=== PATIENT | female | born 1955 | race Caucasian/White ===

== ENCOUNTER → 2019-12-28 13:58 | Outpatient (CLI) | payer BC, SELFPAY ==
[2019-12-28 15:21] LABS: Absolute Lymphocyte Count 3.17 X10^3/uL (0.83-4.51); Absolute Neutrophil Count 2.8 X10^3/uL (2.0-7.7); Basophil# 0.03 X10^3/uL; Basophil% 0.4 % (0-1); Eosinophil# 0.12 X10^3/uL; Eosinophils% 1.8 % (0-5); Hematocrit 38.1 % (37-47); Hemoglobin 12.8 g/dL (12.0-15.0); Lymphocyte # 3.17 X10^3/ul (4.0); Lymphocyte % 47.2 % (19-41); Mean Corp Hgb Conc 33.6 g/dL (32-36); Mean Corpuscular Hgb 29.6 pg (27.0-32.0); Mean Corpuscular Volume 88.2 fL (81-99); Mean Platelet Vol. 10.2 fl (6.2-12.0); Monocyte# 0.53 X10^3/uL; Monocyte% 7.9 % (0-10); NRBC Flagged by Analyzer 0 % (0-5); Neutrophil # 2.84 X10^3/uL (2.7-7.7); Neutrophil % 42.3 % (47-70); Platelet Count 302 K/mm3 (150-450); RBC Distribution Width CV 12.1 % (11.6-14.6); RBC Distribution Width SD 39.1 fl (35.1-43.9); Red Blood Count 4.32 M/mm3 (4.2-5.4); White Blood Count 6.7 K/mm3 (4.4-11.0)
[2019-12-28 16:26] LABS: ALB/GLOB Ratio 0.8 RATIO (0.9-2.4); AST(SGOT) 18 U/L (15-37); Alanine Aminotransfer ALT/SGPT 28 U/L (13-56); Albumin, Serum 3.7 g/dL (3.2-5.0); Alkaline Phosphatase 93 U/L (45-117); Anion Gap 5 (5-15); BUN 13 mg/dL (7-18); Calcium,Total 9.6 mg/dL (8.5-10.1); Chloride 104 mmol/L (98-107); Creatinine, Serum 0.81 mg/dL (0.55-1.02); EST Glomerular Filtration Rate 76 mL/min (>60); Est Glom Filt Rate - Afr Amer 92 mL/min (>60); Globulin 4.7 g/dL (2.2-4.2); Glucose 74 mg/dL (74-106); Potassium 3.3 mmol/L (3.5-5.1); Protein, Total 8.4 g/dL (6.4-8.2); Sodium Level 140 mmol/L (136-145)
[2019-12-29 10:08] LABS: Hepatitis B Surface Antibody Non-Reactive; Hepatitis B Surface Antigen Non-Reactive (Nonreactive); Hepatitis C Antibody Non-Reactive (Nonreactive)
[2019-12-31 15:12] LABS: CCP IgG Antibodies 16 units (0-19); Hepatitis B Core AB IgM Negative (Negative)
== END ==
PROVIDERS: PCP Family Medicine; Referring Provider Internal Medicine Rheumatology; Visit Provider Internal Medicine Rheumatology
DX: I10 Essential (primary) hypertension (principal); K21.9 Gastro-esophageal reflux disease without esophagitis; E78.5 Hyperlipidemia, unspecified; M79.7 Fibromyalgia; M05.79 Rheumatoid arthritis with rheumatoid factor of multiple sites without organ or systems involvement
CPT/HCPCS: 36415; 80053; 85025; 86200; 86431; 86705; 86706; 86803; 87340

== ENCOUNTER → 2020-05-31 15:07 | Outpatient (CLI) | payer BC, SELFPAY ==
[2020-05-31 17:36] LABS: Absolute Lymphocyte Count 2.73 X10^3/uL (0.83-4.51); Absolute Neutrophil Count 3.5 X10^3/uL (2.0-7.7); Basophil# 0.02 X10^3/uL; Basophil% 0.3 % (0-1); Eosinophil# 0.11 X10^3/uL; Eosinophils% 1.6 % (0-5); Hematocrit 37.2 % (37-47); Hemoglobin 12.4 g/dL (12.0-15.0); Lymphocyte # 2.73 X10^3/ul (4.0); Lymphocyte % 39.2 % (19-41); Mean Corp Hgb Conc 33.3 g/dL (32-36); Mean Corpuscular Hgb 30.2 pg (27.0-32.0); Mean Corpuscular Volume 90.5 fL (81-99); Mean Platelet Vol. 10.8 fl (6.2-12.0); Monocyte# 0.56 X10^3/uL; NRBC Flagged by Analyzer 0 % (0-5); Neutrophil # 3.52 X10^3/uL (2.7-7.7); Neutrophil % 50.6 % (47-70); Platelet Count 258 K/mm3 (150-450); RBC Distribution Width CV 12.8 % (11.6-14.6); RBC Distribution Width SD 41.5 fl (35.1-43.9); Red Blood Count 4.11 M/mm3 (4.2-5.4)
[2020-05-31 18:00] LABS: ALB/GLOB Ratio 0.8 RATIO (0.9-2.4); AST(SGOT) 27 U/L (15-37); Alanine Aminotransfer ALT/SGPT 34 U/L (13-56); Albumin, Serum 3.7 g/dL (3.2-5.0); Alkaline Phosphatase 91 U/L (45-117); Anion Gap 7 (5-15); BUN 14 mg/dL (7-18); BUN/Creat Ratio 16.5 RATIO (10-20); Calcium,Total 9.1 mg/dL (8.5-10.1); Chloride 106 mmol/L (98-107); Creatinine, Serum 0.85 mg/dL (0.55-1.02); EST Glomerular Filtration Rate 72 mL/min (>60); Est Glom Filt Rate - Afr Amer 87 mL/min (>60); Globulin 4.4 g/dL (2.2-4.2); Glucose 94 mg/dL (74-106); Protein, Total 8.1 g/dL (6.4-8.2); Sodium Level 140 mmol/L (136-145)
== END ==
PROVIDERS: PCP Family Medicine; Referring Provider Internal Medicine Rheumatology; Visit Provider Internal Medicine Rheumatology
DX: M05.79 Rheumatoid arthritis with rheumatoid factor of multiple sites without organ or systems involvement (principal); M79.7 Fibromyalgia; K21.9 Gastro-esophageal reflux disease without esophagitis; I10 Essential (primary) hypertension; E78.5 Hyperlipidemia, unspecified; Z79.899 Other long term (current) drug therapy
CPT/HCPCS: 36415; 80053; 85025

== ENCOUNTER → 2020-06-16 11:37 | Outpatient (CLI) | payer BC, SELFPAY ==
[2020-06-16 15:26] LABS: Absolute Lymphocyte Count 2.63 X10^3/uL (0.83-4.51); Absolute Neutrophil Count 2.1 X10^3/uL (2.0-7.7); Basophil# 0.02 X10^3/uL; Basophil% 0.4 % (0-1); Eosinophil# 0.17 X10^3/uL; Eosinophils% 3.1 % (0-5); Hematocrit 37.5 % (37-47); Hemoglobin 12.2 g/dL (12.0-15.0); Lymphocyte # 2.63 X10^3/ul (4.0); Lymphocyte % 48.3 % (19-41); Mean Corp Hgb Conc 32.5 g/dL (32-36); Mean Corpuscular Hgb 30.2 pg (27.0-32.0); Mean Corpuscular Volume 92.8 fL (81-99); Mean Platelet Vol. 10.6 fl (6.2-12.0); Monocyte# 0.47 X10^3/uL; Monocyte% 8.6 % (0-10); NRBC Flagged by Analyzer 0 % (0-5); Neutrophil # 2.14 X10^3/uL (2.7-7.7); Neutrophil % 39.2 % (47-70); Platelet Count 262 K/mm3 (150-450); RBC Distribution Width CV 12.8 % (11.6-14.6); Red Blood Count 4.04 M/mm3 (4.2-5.4); White Blood Count 5.5 K/mm3 (4.4-11.0)
[2020-06-16 15:41] LABS: ALB/GLOB Ratio 0.9 RATIO (0.9-2.4); AST(SGOT) 22 U/L (15-37); Alanine Aminotransfer ALT/SGPT 34 U/L (13-56); Albumin, Serum 3.6 g/dL (3.2-5.0); Alkaline Phosphatase 91 U/L (45-117); Anion Gap 6 (5-15); BUN 17 mg/dL (7-18); BUN/Creat Ratio 19.4 RATIO (10-20); Calcium,Total 8.9 mg/dL (8.5-10.1); Chloride 106 mmol/L (98-107); Creatinine, Serum 0.88 mg/dL (0.55-1.02); EST Glomerular Filtration Rate 69 mL/min (>60); Est Glom Filt Rate - Afr Amer 84 mL/min (>60); Globulin 4.1 g/dL (2.2-4.2); Glucose 78 mg/dL (74-106); Potassium 3.1 mmol/L (3.5-5.1); Protein, Total 7.7 g/dL (6.4-8.2); Sodium Level 140 mmol/L (136-145)
== END ==
PROVIDERS: PCP Family Medicine; Referring Provider Internal Medicine Rheumatology; Visit Provider Internal Medicine Rheumatology
DX: M05.79 Rheumatoid arthritis with rheumatoid factor of multiple sites without organ or systems involvement (principal); M79.7 Fibromyalgia; K21.9 Gastro-esophageal reflux disease without esophagitis; I10 Essential (primary) hypertension; E78.5 Hyperlipidemia, unspecified; Z79.899 Other long term (current) drug therapy
CPT/HCPCS: 36415; 80053; 85025

== ENCOUNTER → 2020-08-14 12:04 | Outpatient (CLI) | payer BC, SELFPAY ==
[2020-08-14 16:46] LABS: ALB/GLOB Ratio 0.9 RATIO (0.9-2.4); AST(SGOT) 43 U/L (15-37); Alanine Aminotransfer ALT/SGPT 47 U/L (13-56); Albumin, Serum 3.8 g/dL (3.2-5.0); Alkaline Phosphatase 90 U/L (45-117); Anion Gap 5 (5-15); BUN 15 mg/dL (7-18); BUN/Creat Ratio 19.2 RATIO (10-20); Calcium,Total 9.7 mg/dL (8.5-10.1); Chloride 105 mmol/L (98-107); Creatinine, Serum 0.78 mg/dL (0.55-1.02); EST Glomerular Filtration Rate 79 mL/min (>60); Est Glom Filt Rate - Afr Amer 96 mL/min (>60); Globulin 4.4 g/dL (2.2-4.2); Glucose 86 mg/dL (74-106); Potassium 3.2 mmol/L (3.5-5.1); Protein, Total 8.2 g/dL (6.4-8.2); Sodium Level 140 mmol/L (136-145)
[2020-08-14 17:07] LABS: Absolute Lymphocyte Count 2.32 X10^3/uL (0.83-4.51); Absolute Neutrophil Count 2.5 X10^3/uL (2.0-7.7); Basophil# 0.02 X10^3/uL; Basophil% 0.4 % (0-1); Eosinophils% 1.9 % (0-5); Hematocrit 37.5 % (37-47); Hemoglobin 12.4 g/dL (12.0-15.0); Lymphocyte # 2.32 X10^3/ul (4.0); Lymphocyte % 43.7 % (19-41); Mean Corp Hgb Conc 33.1 g/dL (32-36); Mean Corpuscular Hgb 30.8 pg (27.0-32.0); Mean Corpuscular Volume 93.3 fL (81-99); Mean Platelet Vol. 10.9 fl (6.2-12.0); Monocyte# 0.34 X10^3/uL; Monocyte% 6.4 % (0-10); NRBC Flagged by Analyzer 0 % (0-5); Neutrophil # 2.52 X10^3/uL (2.7-7.7); Neutrophil % 47.4 % (47-70); Platelet Count 273 K/mm3 (150-450); RBC Distribution Width CV 13.8 % (11.6-14.6); RBC Distribution Width SD 46.4 fl (35.1-43.9); Red Blood Count 4.02 M/mm3 (4.2-5.4); White Blood Count 5.3 K/mm3 (4.4-11.0)
== END ==
PROVIDERS: PCP Family Medicine; Referring Provider Internal Medicine Rheumatology; Visit Provider Internal Medicine Rheumatology
DX: M05.79 Rheumatoid arthritis with rheumatoid factor of multiple sites without organ or systems involvement (principal); M79.7 Fibromyalgia; K21.9 Gastro-esophageal reflux disease without esophagitis; I10 Essential (primary) hypertension; E78.5 Hyperlipidemia, unspecified; Z79.899 Other long term (current) drug therapy
CPT/HCPCS: 36415; 80053; 85025

== ENCOUNTER → 2020-09-11 10:10 | Outpatient (CLI) ==
[2020-09-11 12:59] LABS: ALB/GLOB Ratio 0.8 RATIO (0.9-2.4); AST(SGOT) 32 U/L (15-37); Alanine Aminotransfer ALT/SGPT 34 U/L (13-56); Albumin, Serum 3.5 g/dL (3.2-5.0); Alkaline Phosphatase 98 U/L (45-117); Anion Gap 7 (5-15); BUN 18 mg/dL (7-18); BUN/Creat Ratio 21.8 RATIO (10-20); Calcium,Total 9.2 mg/dL (8.5-10.1); Chloride 104 mmol/L (98-107); Creatinine, Serum 0.83 mg/dL (0.55-1.02); EST Glomerular Filtration Rate 74 mL/min (>60); Est Glom Filt Rate - Afr Amer 90 mL/min (>60); Globulin 4.4 g/dL (2.2-4.2); Glucose 106 mg/dL (74-106); Potassium 3.1 mmol/L (3.5-5.1); Protein, Total 7.9 g/dL (6.4-8.2); Sodium Level 140 mmol/L (136-145)
== END ==
PROVIDERS: PCP Family Medicine; Referring Provider Internal Medicine Rheumatology; Visit Provider Internal Medicine Rheumatology
DX: M05.79 Rheumatoid arthritis with rheumatoid factor of multiple sites without organ or systems involvement (principal); M79.7 Fibromyalgia; K21.9 Gastro-esophageal reflux disease without esophagitis; I10 Essential (primary) hypertension; E78.5 Hyperlipidemia, unspecified; Z79.899 Other long term (current) drug therapy
CPT/HCPCS: 36415; 80053

== ENCOUNTER → 2021-07-16 14:57 | Outpatient (CLI) | payer BC, SELFPAY ==
--- NOTE | 2021-07-16 15:02 | US_ITS ---
STUDY: RENAL ULTRASOUND - COMPLETE REASON FOR EXAM: Female, 65 years old. HEMATURIA TECHNIQUE: Ultrasound evaluation of the kidneys was performed with real-time and static peres-scale imaging. COMPARISON: None. FINDINGS: RIGHT KIDNEY: Normal location of the right kidney, which is normal in size. The right kidney measures 10.8 cm x 5.5 cm x 4.2 cm. There is a normal cortex of the right kidney. The renal cortex measures 1.1 cm. There is no right renal mass or cyst. There are no right renal calculi. There is no right hydronephrosis. DISTAL RIGHT URETER: There is non-visualization of the distal right ureter. There is no demonstrated right ureterovesical junction calculus. There is a visualized right ureteral jet. LEFT KIDNEY: Normal location of the left kidney, which is normal in size. The left kidney measures 11.3 cm x 4.6 cm x 4.4 cm. There is a normal cortex of the left kidney. The renal cortex measures 2.0 cm. There is no left renal mass or cyst. There are no left renal calculi. There is no left hydronephrosis. DISTAL LEFT URETER: There is non-visualization of the distal left ureter. There is no demonstrated left ureterovesical junction calculus. There is a visualized left ureteral jet. BLADDER: The distended urinary bladder has a volume of 130 ml. There is a normal wall thickness of the distended urinary bladder. There is no demonstrated mass within the urinary bladder. There are no demonstrated bladder calculi. US/Kidney and Bladder IMPRESSION: Normal ultrasound of the kidneys and urinary bladder. Electronically Signed: Zeferino Hawthorne MD at 10:06 EDT , Service support ,
== END ==
PROVIDERS: PCP Physician Assistant; Referring Provider Physician Assistant; Visit Provider Physician Assistant
DX: R31.9 Hematuria, unspecified (principal)
CPT/HCPCS: 76770

== ENCOUNTER → 2021-08-15 10:22 | Outpatient (CLI) | payer BC, SELFPAY ==
--- NOTE | 2021-08-15 09:30 | EMB_PTH ---
PATIENT: TONIA SIDHU LOC: [facility] U#:[id number] AGE/SX: 69/F ROOM: RE08/15/[address]: VI Purcell : 1955 BED: DIS: SPEC #: [id number] RECD: 08/15/21 10:15 STATUS: ANTHONY POLINA #: [id number] ANJU: 08/15/21 09:[address]: Richelle Morton NP DEPT: SURGICAL PATHOLOGY RECD BY: Ne Aguilar ENTERED: 08/15/21 11:15 SP TYPE: ENDOM BX/C ASHLEY DR: ANA Hernandez Tissues: Endometrium, NOS Procedures: Surgery Specimen Level IV HEADER OPERATION: Endometrial biopsy PRE-OP DIAGNOSIS: PMB TISSUE SUBMITTED: Endometrial lining MICROSCOPIC DIAGNOSIS Endometrial biopsy: Simple endometrial hyperplasia without atypia. ROXANNA:octavio 08/16/2021 COMMENT Case has been reviewed in consultation with Dr. Pham who concurs with the above diagnosis. IDC:AM MICROSCOPIC DESCRIPTION Slides are reviewed. GROSS DESCRIPTION Received is one container labeled with the patient's name and not further designated. The specimen consists of multiple irregular fragments of pink soft tissue mixed with mucoid tissue that in aggregate measure 3 x 2.5 x 0.3 cm. The specimen is totally submitted in one cassette. / SJ:octavio 08/15/21 TC:5 CPT: 05544
== END ==
PROVIDERS: PCP Physician Assistant; Referring Provider Nurse Practitioner Women's Health; Visit Provider Nurse Practitioner Women's Health
DX: Z12.4 Encounter for screening for malignant neoplasm of cervix (principal)
CPT/HCPCS: 87624; 88175; 88305; G0145

== ENCOUNTER → 2021-08-22 14:10 | Outpatient (CLI) | payer BC, SELFPAY ==
--- NOTE | 2021-08-22 14:11 | US_ITS ---
STUDY: ULTRASOUND OF THE FEMALE PELVIS - COMPLETE REASON FOR EXAM: Female, 65 years old. PMB TECHNIQUE: Endovaginal. Transvaginal US was obtained to better visualized the ovaries. COMPARISON: None. FINDINGS: The uterus is anteverted and is in a midline position. The uterus measures 9.3 x 5 x 3.7 cm. The endometrium measures 8.2 mm in thickness, and is fluid distended. There is no demonstrated endometrial mass. There is no demonstrated myometrial mass. I.U.D. - The patient does not have an I.U.D. cystic area in the lower uterine segment may be in the cervix. This may be a nabothian cyst. There is appearance of a solid appearing mass in the cervix measuring 7.2 mm. This may be a polyp. There is nonvisualization of the right ovary due to overlying bowel gas. There is nonvisualization of the left ovary due to overlying bowel gas. There is no fluid in the cul-de-sac. Urinary bladder volume is 369 cc. US/Transvaginal Non- IMPRESSION: There is endometrial thickening. This is abnormal for the patient''s age if she is postmenopausal. There is appearance of a solid appearing mass in the cervix measuring 7.2 mm. This may be a polyp. Direct visualization is recommended to exclude an underlying mass. The urinary bladder is distended. This can suggest urinary retention. Electronically Signed: Brayan Perez MD at 15:51 EDT , Service support ,
--- NOTE | 2021-08-22 14:11 | US_ITS ---
STUDY: ULTRASOUND OF THE FEMALE PELVIS - COMPLETE REASON FOR EXAM: Female, 65 years old. PMB TECHNIQUE: Endovaginal. Transvaginal US was obtained to better visualized the ovaries. COMPARISON: None. FINDINGS: The uterus is anteverted and is in a midline position. The uterus measures 9.3 x 5 x 3.7 cm. The endometrium measures 8.2 mm in thickness, and is fluid distended. There is no demonstrated endometrial mass. There is no demonstrated myometrial mass. I.U.D. - The patient does not have an I.U.D. cystic area in the lower uterine segment may be in the cervix. This may be a nabothian cyst. There is appearance of a solid appearing mass in the cervix measuring 7.2 mm. This may be a polyp. There is nonvisualization of the right ovary due to overlying bowel gas. There is nonvisualization of the left ovary due to overlying bowel gas. There is no fluid in the cul-de-sac. Urinary bladder volume is 369 cc. US/Pelvic (Non ) IMPRESSION: There is endometrial thickening. This is abnormal for the patient''s age if she is postmenopausal. There is appearance of a solid appearing mass in the cervix measuring 7.2 mm. This may be a polyp. Direct visualization is recommended to exclude an underlying mass. The urinary bladder is distended. This can suggest urinary retention. Electronically Signed: Brayan Perez MD at 15:51 EDT , Service support ,
== END ==
PROVIDERS: PCP Physician Assistant; Visit Provider Nurse Practitioner Women's Health
DX: N95.0 Postmenopausal bleeding (principal)
CPT/HCPCS: 76830; 76856

== ENCOUNTER 2021-11-20 07:54 | Day surgery (SDC) | payer MEDICARE, SELFPAY ==
--- NOTE | 2021-11-19 13:24 | EKG12_ITS ---
Test Reason : PREOP Blood Pressure : / mmHG Vent. Rate : 056 BPM Atrial Rate : 056 BPM P-R Int : 214 ms QRS Dur : 076 ms QT Int : 460 ms P-R-T Axes : 042 022 032 degrees QTc Int : 443 ms Sinus bradycardia with 1st degree A-V block Otherwise normal ECG Confirmed by TOMY RAMIREZ, JAMES ([id number]), website/blog editor [facility] ([id number]) on 11/20/2021 10:07:14 AM Referred By: Livia Robison Confirmed By:JAMES HUITRON MD
[2021-11-19 14:52] LABS: Absolute Lymphocyte Count 2.92 X10^3/uL (0.83-4.51); Absolute Neutrophil Count 1.9 X10^3/uL (2.0-7.7); Basophil# 0.03 X10^3/uL; Basophil% 0.6 % (0-1); Eosinophil# 0.14 X10^3/uL; Eosinophils% 2.6 % (0-5); Hematocrit 36.1 % (37-47); Hemoglobin 12.4 g/dL (12.0-15.0); Lymphocyte # 2.92 X10^3/ul (0.83-4.51); Lymphocyte % 53.7 % (19-41); Mean Corp Hgb Conc 34.3 g/dL (32-36); Mean Corpuscular Hgb 30.2 pg (27.0-32.0); Mean Platelet Vol. 10.1 fl (6.2-12.0); Monocyte# 0.43 X10^3/uL; Monocyte% 7.9 % (0-10); NRBC Flagged by Analyzer 0 % (0-5); Neutrophil # 1.91 X10^3/uL (2.7-7.7); Platelet Count 266 K/mm3 (150-450); RBC Distribution Width CV 12.4 % (11.6-14.6); RBC Distribution Width SD 39.9 fl (35.1-43.9); White Blood Count 5.4 K/mm3 (4.4-11.0)
[2021-11-19 15:40] LABS: ALB/GLOB Ratio 0.8 RATIO (0.9-2.4); AST(SGOT) 17 U/L (15-37); Alanine Aminotransfer ALT/SGPT 26 U/L (13-56); Albumin, Serum 3.6 g/dL (3.2-5.0); Alkaline Phosphatase 83 U/L (45-117); Anion Gap 7 (5-15); BUN 11 mg/dL (7-18); BUN/Creat Ratio 17.3 RATIO (10-20); Calcium,Total 9.2 mg/dL (8.5-10.1); Chloride 101 mmol/L (98-107); Creatinine, Serum 0.64 mg/dL (0.55-1.02); EST Glomerular Filtration Rate 100 mL/min (>60); Est Glom Filt Rate - Afr Amer 121 mL/min (>60); Globulin 4.4 g/dL (2.2-4.2); Glucose 73 mg/dL (74-106); Potassium 3.1 mmol/L (3.5-5.1); Sodium Level 139 mmol/L (136-145)
[2021-11-20] VITALS (7 sets, daily range): BP systolic 103–123; BP diastolic 64–74; PULSE 58–71; RESP 14–16; TEMP 36.1–36.9; O2SAT 96–100; BMI 36.4
[2021-11-20] MEDS: Lactated Ringers 1,000 ML 125 ML IV (08:47)
--- NOTE | 2021-11-20 09:05 | PCM.HP.BLA ---
History and Physical Date of Admission: 11/20/21 Vital Signs 11/06/21 11:28 Height 5 ft 5 in Weight: 223 lb BMI 37.0 Intake Visit Reasons: D&C IUD insert Chief Complaint: pre op D&C with symphion and IUD insert Photocopy Operator Required: No Is patient in pain?: No Allergies No Known Allergies Allergy (Verified 11/06/21 11:29) Medications atenolol 25 mg tablet 25 mg PO DAILY 08/15/21 [History Confirmed 11/06/21] hydrochlorothiazide 12.5 mg capsule 12.5 mg PO DAILY 08/15/21 [History Confirmed 11/06/21] pravastatin 40 mg tablet 40 mg PO DAILY 08/15/21 [History Confirmed 11/06/21] Is last menstrual period known: No Post menopausal: No Patient : No : No [facility] Medical History (Updated 11/06/21 @ 11:[address] 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 Smoking Status: Never smoker second hand exposure: No alcohol intake: current alcohol intake frequency: holidays/special occasions only substance use type: does not use seatbelt use: always do you feel safe at home: Yes additional social history: - Silvestre HPI D&C IUD insert Details: TONIA SIDHU is a 65 year old who presents for preop visit planning d and c hysteroscopy and iud insertion for hyperplasia Female Reproductive History Menopausal Symptoms: No hot flashes, No night sweats, No difficulty concentrating and No change in libido Pregancy History 4 Elective abortions Hx Para 3 Spontaneous abortions Hx # Term Pregnancies Ectopic pregnancies Hx # Pregnancies Multiple births # of living children ROS Const Constitutional: Denies fatigue, night sweats, weight gain or weight loss ENT ENT: Reports system reviewed and no additional complaints, except as documented Cardio Card: Denies chest pain Resp Resp: Denies cough or dyspnea GI GI: Reports as per HPI and nausea; Denies abdominal pain, constipation or vomiting : Denies hot flashes, nipple discharge, urinary frequency, urinary incontinence, urinary hesitancy, urinary urgency, vaginal discharge, vaginal dryness, vaginal odor or vaginal pruritus Musc Musc: Reports arthralgias; Denies back pain or muscle weakness Skin Skin/Breast: Reports alopecia; Denies change in hair, dry skin, breast mass, breast pain, breast skin changes or nipple discharge Neuro Neuro: Reports system reviewed and no additional complaints, except as documented Psych Psych: Reports system reviewed and no additional complaints, except as documented; Denies change in libido or difficulty concentrating Endo Endo: Denies cold intolerance, excessive sweating, heat intolerance or polydipsia Fabian/Lymph Hematologic/Lymphatic: Denies easy bleeding, Denies easy bruising and Denies lymphadenopathy Exam Const General: cooperative, healthy appearing, comfortable, no acute distress and well developed Orientation: alert [facility] Head: normal to inspection and normocephalic Ears: hearing grossly normal bilaterally and external ears normal Nose: external nose normal and nares normal Face and sinus: normal facial exam Neck Neck: normal visual inspection and no lymphadenopathy Thyroid: thyroid normal Chest Chest palpation & inspection: normal inspection of the chest Resp Effort & Inspection: normal respiratory effort Auscultation: clear to auscultation bilaterally Cardio Rate: regular rate Rhythm: regular rhythm Heart Sounds: S1 normal and S2 normal GI Inspection: normal to inspection and non-distended Palpation: soft and no hepatosplenomegaly Musc Other: gross motor intact no deficits, full bilateral strength Skin General: no rashes or lesions noted Neuro General: patient alert, patient awake, moves all extremities and no focal motor deficits Motor: muscle tone normal throughout Extrem General: normal to inspection and no pedal edema Psych Appearance: grossly normal Mental Status: mental status grossly normal Affect: normal affect Speech and Movement: speech and movement normal Coding Level of Care Code No Charge Diagnoses Simple endometrial hyperplasia without atypia N85.01 Assessment and Plan Assessment and Plan (1) Simple endometrial hyperplasia without atypia: Status: Acute Comment: On EMB 08/15. US:thickened lining with possible polyp. D&C, hysteroscopy, symphion if needed. plan progestin therapy after. Plan - Dr. Livia Robison MD: After discussing the patient's diagnosis and treatment plan options, patient wishes to proceed with surgical management. I have discussed with the patient the risks, benefits, and alternatives of the procedure which include but are not limited to risks of anesthesia, bleeding, infection, possible damage to bowel, bladder, or surrounding vasculature which could lead to additional surgery to evaluate any complications. Patient agrees to procedure and wishes to proceed. ACOG/uptodate references given for additional information regarding procedure. UPDATE- I have seen the patient and performed any clinically relevant updates to the history and physical exam. Livia Robison MD
--- NOTE | 2021-11-20 09:30 | EMB_PTH ---
PATIENT: TONIA SIDHU LOC: [facility] U#:[id number] AGE/SX: 65/F ROOM: RE11/20/[address]: Dr. Livia Robison MD : 1955 BED: DIS: 11/20/2021 SPEC #: [id number] RECD: 11/20/21 11:38 STATUS: ANTHONY FISH #: [id number] ANJU: 11/20/21 09:[address]: Livia Robison DEPT: SURGICAL PATHOLOGY RECD BY: Kirsten Clemens ENTERED: 11/20/21 13:06 SP TYPE: ENDOM BX/C ASHLEY DR: ANA Hernandez Tissues: Endometrium, NOS Procedures: Surgery Specimen Level IV HEADER OPERATION: Hysteroscopy, D & C Symphion, polypectomy PRE-OP DIAGNOSIS: Simple endometrial hyperplasia without atypia TISSUE SUBMITTED: Endometrial curettings and polyp MICROSCOPIC DIAGNOSIS Endometrial curettings and polyp: Simple and focal complex endometrial hyperplasia without atypia. Numerous fragments of myometrium. A piece of benign endometrial polyp with simple endometrial hyperplasia without atypia. ROXANNA:octavio 11/21/2021 COMMENT Please make reference to previous specimen ([id number]) endometrial biopsy with diagnosis of ?simple endometrial hyperplasia without atypia.? MICROSCOPIC DESCRIPTION Slides are reviewed. GROSS DESCRIPTION Received in fixative is one container labeled with the patient's name and designated endometrial curettings and polyp. The specimen consists of a greco-pink polyp measuring 2 x 0.8 x 0.2 cm. Also present in the container are multiple fragments of greco soft tissue measuring in aggregate 7.5 x 3 x 0.3 cm. The entire specimen is submitted in four cassettes. Cassette 4 contains the bisected polyp. / ROXANNA:octavio 11/20/21 TC:5 CPT: 12304
--- NOTE | 2021-11-20 09:50 | OP.PCM_ITS ---
Problems Associated Problem List Diagnoses (1) Simple endometrial hyperplasia without atypia: Report of Operation Date of Procedure: 11/20/21 Pre-Operative Diagnosis: see problem list Post-Operative Diagnosis: same Surgery/Procedure Performed:: D&C hysteroscopy polypectomy using symphion operative myomectomy senior data warehouse architect: None Type of Anesthesia: Local MAC Special Medications: none Specimen's removed: EMC, polyp, fibroid Drains: none Estimated Blood Loss (mL): 50 Fluids Replaced: crystalloid Description of Procedure: Patient was prepped and draped in a normal sterile fashion under MAC anesthesia. A weighted speculum was placed in the vagina and the anterior lip of the cervix was grasped with a single-tooth tenaculum. A paracervical block was placed with 1% lidocaine. Cervix was progressively dilated to allow passage of a 5 mm hysteroscope. The lining was fully visualized and noted to have polypoid lining and posterior submucosal fibroid . Uterine sounded to 8 cm. Using the symphion device, the polyps and fibroid on the posterior wall was progressively removed without complications. Direct visual curettage was performed using the device , and all specimens were sent to pathology. All instruments were removed from the vagina and excellent hemostasis was noted. Patient was awoken and taken to recovery in stable condition. Grafts/Implants Used: none Complications none Admit VTE Documentation VTE Present on Admission: No VTE Mechan Device Prophylaxis: SCD's Multi Select Codes Urinary/Genital Urinary/Genital CPT Codes: 70103 Hysteroscopic myomectomy
--- NOTE | 2021-11-20 09:51 | EX.PCM.DISCH ---
Discharge Instructions Procedure D&C Diet Discharge Diet: No restrictions Activity Discharge Activity: Return to Normal Activity, May Shower and May Take a Tub Bath (after 1 week) May resume sexual activity in: 1-2 weeks Weight Bearing Status: Weight bearing as tolerated Lifting Restrictions: none Dressing / Incision Call your doctor if you observe: Fever of 101 or Higher, Using more than 1 pad per hour, Shortness of breath and Uncontrolled pain Follow Up Care Please Follow Up With: Livia Robison MD When: Call [phone] to schedule appointment. Test Results: Test results from this visit will be discussed in further detail at your follow-up appointment, if applicable. Discharge Plan Admission Primary Reason for Your Visit: d and c Attending Provider: Livia Robison Primary Care Provider: Rubia Gupta Discharge Orders/Prescriptions Prescriptions: No Action atenolol 25 mg tablet 25 mg PO DAILY RF: 0 pravastatin 40 mg tablet 40 mg PO DAILY RF: 0 hydrochlorothiazide 12.5 mg capsule 12.5 mg PO DAILY RF: 0 omeprazole 20 mg capsule,delayed release(DR/EC) 20 mg PO PRN PRN (Reason: GERD) RF: 0 Fish Oil Capsule 500 mg PO BID RF: 0 Referrals / Follow Up: Rubia Gupta PA [Primary Care Provider] - Disposition Disposition (needs filled in before D/C Order can be placed): Home, Self Care
[2021-11-20] MEDS: FERRIC SUBSULFATE 8 GM SOLN (10:00)
[2021-11-20] MEDS: Lidocaine 1% (20 ml mdv) 20 ML Vial (10:00)
== END 2021-11-20 11:51 | disposition home or self-care (01) ==
LOC: SDC 07:56 → AC 07:56
PROVIDERS: PCP Physician Assistant; Referring Provider Obstetrics & Gynecology; Visit Provider Obstetrics & Gynecology
PROC: 0UB98ZZ Excision of Uterus, Via Natural or Artificial Opening Endoscopic (ICD-10-PCS; CPT 58558; principal; 2021-11-20 09:15)
DX: N85.01 Benign endometrial hyperplasia (principal); E78.5 Hyperlipidemia, unspecified; D25.0 Submucous leiomyoma of uterus; I10 Essential (primary) hypertension; I44.0 Atrioventricular block, first degree; Z79.899 Other long term (current) drug therapy
CPT/HCPCS: 00952; 58558; 36415; 80053; 85025; 86850; 86900; 86901; 88305; 93005; J7120; J2405

== ENCOUNTER 2022-01-16 10:40 | Outpatient (CLI) | payer MEDICARE, SELFPAY ==
--- NOTE | 2022-01-16 10:42 | BI_ITS ---
MAMMOGRAPHY - BILATERAL SCREENING REASON FOR EXAM: Female, 66 years old. Routine annual screening examination. PERTINENT HISTORY: Non-contributory. TECHNIQUE: Digital bilateral breast louis (3D mammographic acquisition) in the CC and MLO projections. 2-D mediolateral oblique (MLO) and craniocaudad (CC) views of both breasts were obtained. CAD: Full Field Digital Mammography with Computer Added Detection was performed. COMPARISON: Comparison is made with prior outside examination dated 07/17/2020. FINDINGS: Breast Composition: There are scattered areas of fibroglandular density. There are no dominant masses or suspicious calcifications. Stable small benign-appearing bilateral axillary lymph nodes. No other significant abnormalities are identified. There has been no significant change since the prior study. BI/SCRN MAMM (CAD)W/LOUIS BILAT IMPRESSION: Stable bilateral screening mammogram. Yearly follow-up mammogram recommended. (A) ASSESSMENT CATEGORY: BIRADS Category 2: Benign. A letter regarding these results will be sent to the patient by the facility within 30 days. Approximately 10% of breast cancers are not detected by mammography. A normal mammogram should not delay biopsy of a clinically suspicious abnormality. [id number] Electronically Signed: Zeferino Hawthorne MD at 11:24 EST ,
== END 2022-01-16 23:59 | disposition home or self-care (01) ==
LOC: OPBI 10:41
PROVIDERS: PCP Physician Assistant; Visit Provider Obstetrics & Gynecology
DX: Z12.31 Encounter for screening mammogram for malignant neoplasm of breast (principal)
CPT/HCPCS: 77063; 77067

== ENCOUNTER 2022-01-22 09:47 | Day surgery (SDC) | payer MEDICARE, SELFPAY ==
--- NOTE | 2022-01-16 10:26 | EKG12_ITS ---
Test Reason : PREOP Blood Pressure : / mmHG Vent. Rate : 056 BPM Atrial Rate : 056 BPM P-R Int : 206 ms QRS Dur : 080 ms QT Int : 436 ms P-R-T Axes : 062 026 040 degrees QTc Int : 420 ms Sinus bradycardia Otherwise normal ECG Confirmed by RYAN RAMIREZ, SANJANA ([id number]), manager editorial [facility] ([id number]) on 01/17/2022 8:24:01 AM Referred By: EVA Confirmed By:SANJANA DAVIS MD
[2022-01-16 10:47] LABS: Absolute Lymphocyte Count 2.19 X10^3/uL (0.83-4.51); Absolute Neutrophil Count 3.6 X10^3/uL (2.0-7.7); Basophil# 0.03 X10^3/uL; Basophil% 0.5 % (0-1); Eosinophil# 0.13 X10^3/uL; Eosinophils% 2.1 % (0-5); Hematocrit 37.3 % (37-47); Lymphocyte # 2.19 X10^3/ul (0.83-4.51); Lymphocyte % 34.6 % (19-41); Mean Corp Hgb Conc 34.9 g/dL (32-36); Mean Corpuscular Hgb 30.8 pg (27.0-32.0); Mean Corpuscular Volume 88.4 fL (81-99); Mean Platelet Vol. 10.5 fl (6.2-12.0); Monocyte# 0.36 X10^3/uL; Monocyte% 5.7 % (0-10); NRBC Flagged by Analyzer 0 % (0-5); Neutrophil % 56.8 % (47-70); Platelet Count 227 K/mm3 (150-450); RBC Distribution Width CV 12.2 % (11.6-14.6); RBC Distribution Width SD 39.5 fl (35.1-43.9); Red Blood Count 4.22 M/mm3 (4.2-5.4); White Blood Count 6.3 K/mm3 (4.4-11.0)
[2022-01-16 11:15] LABS: ALB/GLOB Ratio 0.8 RATIO (0.9-2.4); AST(SGOT) 16 U/L (15-37); Alanine Aminotransfer ALT/SGPT 21 U/L (13-56); Albumin, Serum 3.5 g/dL (3.2-5.0); Alkaline Phosphatase 81 U/L (45-117); Anion Gap 6 (5-15); BUN 13 mg/dL (7-18); BUN/Creat Ratio 16.9 RATIO (10-20); Calcium,Total 9.2 mg/dL (8.5-10.1); Chloride 105 mmol/L (98-107); Creatinine, Serum 0.77 mg/dL (0.55-1.02); EST Glomerular Filtration Rate 80 mL/min (>60); Est Glom Filt Rate - Afr Amer 97 mL/min (>60); Globulin 4.3 g/dL (2.2-4.2); Glucose 131 mg/dL (74-106); Potassium 3.5 mmol/L (3.5-5.1); Protein, Total 7.8 g/dL (6.4-8.2); Sodium Level 139 mmol/L (136-145)
[2022-01-16 11:19] LABS: Magnesium 1.7 mg/dL (1.6-2.6)
--- NOTE | 2022-01-21 17:25 | HP.PCM_ITS ---
History and Physical Intake Vital Signs 01/14/22 13:54 Height 5 ft 7 in Weight: 215 lb BMI 33.6 BP 112/86 H Intake Visit Reasons: [facility] LSO/ medicaid form needs signed Chief Complaint: pre op TV LSO/ jose elias sign Mix Maker Required: No Is patient in pain?: No Allergies No Known Allergies Allergy (Verified 12/05/21 09:13) Medications atenolol 25 mg tablet 25 mg PO DAILY 08/15/21 [History Confirmed 01/14/22] hydrochlorothiazide 12.5 mg capsule 12.5 mg PO DAILY 08/15/21 [History Confirmed 01/14/22] pravastatin 40 mg tablet 40 mg PO DAILY 08/15/21 [History Confirmed 01/14/22] omega-3 fatty acids [Fish Oil] 500 mg PO BID 11/13/21 [History Confirmed 01/14/22] omeprazole 20 mg PO PRN PRN 11/13/21 [History Confirmed 01/14/22] Is last menstrual period known: No Post menopausal: Yes Patient : No : No [facility] Medical History Ambulates with cane Arthritis Complex endometrial hyperplasia without atypia Ectopic Gastric reflux High cholesterol Hyperlipemia Hypertension Simple endometrial hyperplasia with atypia Simple endometrial hyperplasia without atypia Surgical History H/O dilation and curettage History of bilateral salpingectomy History of cholecystectomy History of right oophorectomy Family History Mother Hypertension Hyperlipemia Heart disease Father Cancer, Onset Age: 50 Brain cancer Brother Cancer, Onset Age: 50 Brain cancer Social History household members: spouse number of children: 3 current occupational status: employed 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 Female Reproductive History Menopausal Symptoms: No night sweats Pregancy History 4 Elective abortions Hx Para 3 Spontaneous abortions Hx # Term Pregnancies Ectopic pregnancies Hx # Pregnancies Multiple births # of living children ROS Const Constitutional: Denies fatigue, night sweats, weight gain or weight loss ENT ENT: Reports system reviewed and no additional complaints, except as documented Cardio Card: Denies chest pain Resp Resp: Denies cough or dyspnea GI GI: Reports as per HPI; Denies abdominal pain, constipation, nausea or vomiting : Denies nipple discharge, urinary frequency, urinary incontinence, urinary hesitancy, urinary urgency, vaginal discharge, vaginal dryness, vaginal odor or vaginal pruritus Musc Musc: Denies arthralgias, back pain or muscle weakness Skin Skin/Breast: Denies alopecia, change in hair, dry skin, breast mass, breast pain, breast skin changes or nipple discharge Neuro Neuro: Reports system reviewed and no additional complaints, except as documented Psych Psych: Reports system reviewed and no additional complaints, except as documented Endo Endo: Denies cold intolerance, excessive sweating, heat intolerance or polydipsia Fabian/Lymph Hematologic/Lymphatic: Denies easy bleeding, Denies easy bruising and Denies lymphadenopathy Exam Const General: cooperative, healthy appearing, comfortable, no acute distress and well developed Orientation: alert [facility] Head: normal to inspection and normocephalic Ears: hearing grossly normal bilaterally and external ears normal Nose: external nose normal and nares normal Face and sinus: normal facial exam Neck Neck: normal visual inspection and no lymphadenopathy Thyroid: thyroid normal Chest Chest palpation & inspection: normal inspection of the chest Resp Effort & Inspection: normal respiratory effort Auscultation: clear to auscultation bilaterally Cardio Rate: regular rate Rhythm: regular rhythm Heart Sounds: S1 normal and S2 normal GI Inspection: normal to inspection and non-distended Palpation: soft and no hepatosplenomegaly Musc Other: gross motor intact no deficits, full bilateral strength Skin General: no rashes or lesions noted Neuro General: patient alert, patient awake, moves all extremities and no focal motor deficits Motor: muscle tone normal throughout Extrem General: normal to inspection and no pedal edema Psych Appearance: grossly normal Mental Status: mental status grossly normal Affect: normal affect Speech and Movement: speech and movement normal Coding Level of Care Code No Charge Diagnoses Complex endometrial hyperplasia without atypia N85.01 Assessment and Plan Assessment and Plan (1) Complex endometrial hyperplasia without atypia: Status: Acute Comment: discussed medical vs surgical management. patient prefers hysterectomy. plan [facility] LSO. Plan - Dr. Livia Robison MD: After discussing the patient's diagnosis and treatment plan options, patient wishes to proceed with surgical management. I have discussed with the patient the risks, benefits, and alternatives of the procedure which include but are not limited to risks of anesthesia, bleeding, infection, possible damage to bowel, bladder, or surrounding vasculature which could lead to additional surgery to evaluate any complications. Patient agrees to procedure and wishes to proceed. ACOG/uptodate references given for additional information regarding procedure. UPDATE- I have seen the patient and performed any clinically relevant updates to the history and physical exam. Livia Robison MD
[2022-01-22] VITALS (13 sets, daily range): BP systolic 95–138; BP diastolic 63–100; PULSE 51–75; RESP 12–18; TEMP 36.3–36.9; O2SAT 9–100; BMI 33.5
[2022-01-22] MEDS: Lactated Ringers 1,000 ML 40 ML IV ×3 (10:17→19:18)
[2022-01-22] MEDS: Enoxaparin 40 MG/0.4 ML Syringe SC (10:18)
[2022-01-22] MEDS: Acetaminophen 500 MG Tablet 1000 MG PO ×2 (10:18→17:36)
[2022-01-22] MEDS: Gabapentin 600 MG Tablet PO (10:18)
[2022-01-22] MEDS: dexAMETHasone 10 MG/ML Vial 8 MG IV (10:18)
[2022-01-22] MEDS: Scopolamine 1mg/72hr Patch 1 PATCH TD (10:19)
[2022-01-22] MEDS: Celecoxib 200 MG Capsule 400 MG PO (10:19)
[2022-01-22] MEDS: Phenazopyridine 95 MG Tablet 190 MG PO (10:19)
--- NOTE | 2022-01-22 10:53 | OP.PCM_ITS ---
Problems Associated Problem List Diagnoses (1) Complex endometrial hyperplasia without atypia: Report of Operation Pre-Operative Diagnosis: see A/P Post-Operative Diagnosis: same Surgery/Procedure Performed:: TVH BS Type of Anesthesia: General Specimen's removed: uterus, tubes Drains: noyola Fluids Replaced: crystalloid Description of Procedure: Patient was taken to the operating room and was placed under general anesthesia was prepped and draped in normal sterile fashion in the dorsal lithotomy position. Preoperative antibiotics and SCDs and Noyola catheter was placed inside the bladder. Weighted speculum was placed in the vagina and the anterior and posterior lip of the cervix was grasped with 2 Randy clamps and circumferentially injected with dilute vasopressin. A circumferential incision was made with a scalpel and the posterior cul-de-sac was entered into sharply and a longneck speculum was placed. The anterior cul-de-sac was also dissected down and entered into sharply and the uterosacral ligaments were clamped cut and suture ligated bilaterally followed by the cardinal ligaments which were Clamped cut and suture ligated bilaterally with 0 Monocryl. The uterus serially descended and progressive bites were taken bilaterally up to the level of the utero-ovarian ligament bilaterally which was clamped transected and double ligated with 0 Monocryl suture and 0 Vicryl free tie. Bilateral fallopian tubes and ovaries were not well visualized and had to be palpated, which were then not ed be within normal limits however they were outside of a safe range to reach within the operative field and some sigmoid adhesions were noted on the left side. the decision was made not to remove them due to increased operative risk if attempt would be made to remove them. this was discussed with the patient previously. addtional suture on the right apex was done to obtain hemostasis. The vagina was closed with [id number] 0 Vicryl pop offs including the posterior and anterior peritoneum in the reapproximation. Excellent hemostasis was noted. All instruments removed from the vagina clear urine was noted at the end of the procedure and patient was awoken and taken recovery in stable condition. Grafts/Implants Used: none Complications none Admit VTE Documentation VTE Present on Admission: No VTE Mechan Device Prophylaxis: SCD's VTE Pharm Prophylaxis ordered?: Yes Multi Select Codes Urinary/Genital Urinary/Genital CPT Codes: 40966 TVH <250 gr uterus
--- NOTE | 2022-01-22 10:53 | EX.PCM.DISCH ---
Discharge Instructions Procedure Hysterectomy, Vaginal Diet Discharge Diet: No restrictions Activity Discharge Activity: Return to Normal Activity, May Not Drive (while taking narcotic pain medications.) and May Shower May resume sexual activity in: 6-8 weeks Dressing / Incision Call your doctor if your incision/area has: Continuous Slow Oozing, Sudden Increased Bleeding, Increased Pain/ Swelling, Increased Redness and Foul Smelling Discharge Call your doctor if you observe: Fever of 101 or Higher, Inability to urinate, Inability to have a bowel movement and Using more than 1 pad per hour Follow Up Care Please Follow Up With: Livia Robison MD Test Results: Test results from this visit will be discussed in further detail at your follow-up appointment, if applicable. Discharge Plan Admission Primary Reason for Your Visit: hysterectomy Attending Provider: Livia Robison Primary Care Provider: Rubia Gupta Discharge Orders/Prescriptions Prescriptions: New oxycodone-acetaminophen [Percocet] 5-325 mg tablet 1 tab PO Q6H PRN (Reason: pain) 7 Days Qty: 20 RF: 0 naproxen [naproxen] 500 MG tablet 500 mg PO BID PRN PRN (Reason: Pain) Qty: 30 RF: 1 Continued atenolol 25 mg tablet 25 mg PO DAILY RF: 0 hydrochlorothiazide 12.5 mg capsule 25 mg PO DAILY RF: 0 omeprazole 20 mg capsule,delayed release(DR/EC) 20 mg PO PRN PRN (Reason: GERD) RF: 0 omega-3 fatty acids Capsule 550 mg PO BID RF: 0 rosuvastatin 20 mg tablet 20 mg PO DAILY RF: 0 Referrals / Follow Up: Rubia Gupta PA [Primary Care Provider] - Disposition Disposition (needs filled in before D/C Order can be placed): Home, Self Care
[2022-01-22] MEDS: Cefazolin 2 GM in 0.9% Normal Saline 100 ML IV (11:13)
[2022-01-22 11:20] LABS: Bedside Glucose 68 mg/dL (70-110)
[2022-01-22] MEDS: Vasopressin 20 UNITS/ML Vial (11:35)
--- NOTE | 2022-01-22 11:40 | HYST_PTH ---
PATIENT: TONIA SIDHU LOC: [facility] [place] U#:[id number] AGE/SX: 66/F ROOM: RE01/22/[address]: Dr. Livia Robison MD : [id number] BED: DIS: 01/22/2022 SPEC #: [id number] RECD: 01/22/22 13:14 STATUS: ANTHONY FISH #: [id number] ANJU: 01/22/22 11:[address]: Livia Robison DEPT: SURGICAL PATHOLOGY RECD BY: Ne Aguilar ENTERED: 01/23/22 09:06 SP TYPE: HYSTERECT OTHR DR: ANA Heranndez Tissues: Uterus, NOS Procedures: Surgery Specimen Level V HEADER OPERATION: ERAS, total vaginal hysterectomy PRE-OP DIAGNOSIS: Complex endometrial hyperplasia without atypia TISSUE SUBMITTED: Uterus and cervix MICROSCOPIC DIAGNOSIS Uterus, hysterectomy: Cervix ? mild chronic inflammation. Endometrium ? simple and focal complex hyperplasia without atypia. Myometrium ? focal superficial adenomyosis. AM:octavio 01/24/2022 MICROSCOPIC DESCRIPTION Slides are reviewed. GROSS DESCRIPTION Received in fixative is one container labeled with the patient's name and designated uterus and cervix. The specimen consists of a previously opened hysterectomy specimen consisting of uterus with cervix weighing 77 gm and measuring 8 x 4.5 x 4 cm. The serosal surface is ragged. The ectocervical mucosa is unremarkable. The contour of external os cannot be oriented due to previously opened nature of the uterus. The endocervical canal measures 3 cm in length. The endocervical mucosa reveals two small, raised areas, possible polyp is noted, each measuring 0.3 cm in greatest dimension on the posterior cervix. The triangular endometrial cavity measures 4 cm in length and up to 2.5 cm in width. The endometrium is greco, glistening without any mass lesion and measures up to 0.1 cm in thickness. Sections?of the uterine wall do not reveal any mass lesion and measures up to 2.5 cm in thickness. Pathology Manager sections are submitted in eight cassettes as follows: 1 - anterior cervix, 2 - posterior cervix with possible polyp, 3-5 - anterior uterine wall, 6-8 - posterior uterine wall, entire endometrium is submitted. / SJ:octavio 01/23/2022 TC:5 CPT: 15755
[2022-01-22] MEDS: Ondansetron 4 MG/2 ML Vial IV (12:19)
--- NOTE | 2022-01-22 12:57 | SUR.PHASEI ---
patient monitored on etCO2 NC 4L per protocol. will cont to monitor.
[2022-01-22] MEDS: Ketorolac 30 MG/ML Syringe IV (14:19)
[2022-01-22] MEDS: Lactated Ringers 1,000 ML 70 ML IV (17:37)
[2022-01-22 17:39] LABS: Hematocrit 37.2 % (37-47); Mean Corp Hgb Conc 34.9 g/dL (32-36); Mean Corpuscular Volume 88.8 fL (81-99); Mean Platelet Vol. 10.6 fl (6.2-12.0); Platelet Count 245 K/mm3 (150-450); RBC Distribution Width CV 12.3 % (11.6-14.6); RBC Distribution Width SD 39.7 fl (35.1-43.9); Red Blood Count 4.19 M/mm3 (4.2-5.4); White Blood Count 9.4 K/mm3 (4.4-11.0)
[2022-01-22] MEDS: Lactated Ringers 1,000 ML 999 ML IV (17:55)
[2022-01-22] MEDS: oxyCODONE 5 MG Tablet PO (20:38)
== END 2022-01-22 23:59 | disposition home or self-care (01) ==
LOC: SDC 09:48 → AC 09:49
PROVIDERS: Anesthesiology; PCP Physician Assistant; Referring Provider Obstetrics & Gynecology; Visit Provider Obstetrics & Gynecology
PROC: (CPT 58260; principal; 2022-01-22 11:20)
DX: N85.01 Benign endometrial hyperplasia (principal); I10 Essential (primary) hypertension; E78.00 Pure hypercholesterolemia, unspecified; K21.9 Gastro-esophageal reflux disease without esophagitis; M19.90 Unspecified osteoarthritis, unspecified site; N72 Inflammatory disease of cervix uteri; Z79.899 Other long term (current) drug therapy
CPT/HCPCS: 58550; 00944; 36415; 80053; 82962; 83735; 85025; 85027; 86850; 86900; 86901; 88307; 93005; J7120; J2405

== ENCOUNTER 2022-01-24 12:46 | Emergency (ER) | payer MEDICARE, SELFPAY ==
[2022-01-24 12:47] VITALS: BP 142/95; PULSE 52; RESP 16; TEMP 36.7; O2SAT 97; BMI 33.6
--- NOTE | 2022-01-24 12:50 | EKG12_ITS ---
Test Reason : CP Blood Pressure : / mmHG Vent. Rate : 050 BPM Atrial Rate : 050 BPM P-R Int : 176 ms QRS Dur : 080 ms QT Int : 460 ms P-R-T Axes : 028 014 024 degrees QTc Int : 419 ms Sinus bradycardia Low voltage QRS Borderline ECG Confirmed by JAMES HUITRON MD ([id number]), movie editor LB DAS ([id number]) on 01/25/2022 9:10:36 AM Referred By: Livia Robison Confirmed By:JAMES HUITRON MD
--- NOTE | 2022-01-24 12:55 | RAD_ITS ---
STUDY: X-RAY CHEST REASON FOR EXAM: Female, 66 years old. CP TECHNIQUE: Single AP portable view of the chest. COMPARISON: None. FINDINGS: The lungs are clear and expanded. There is no demonstrated pleural abnormality. Normal size heart. Normal mediastinum and aminata. Normal visualized pulmonary arteries. Normal visualized aortic arch and descending thoracic aorta. Normal visualized thoracic spine. Normal visualized ribs, clavicles, and shoulders. There is no demonstrated abnormality of the visualized soft tissue structures of the upper abdomen. RAD/Chest 1 View IMPRESSION: Normal x-ray examination of the chest. Electronically Signed: Zeferino Hawthorne MD at 13:16 EST ,
[2022-01-24 13:48] LABS: Absolute Lymphocyte Count 2.38 X10^3/uL (0.83-4.51); Absolute Neutrophil Count 8.3 X10^3/uL (2.0-7.7); Eosinophil# 0.01 X10^3/uL; Eosinophils% 0.1 % (0-5); Hematocrit 33.4 % (37-47); Hemoglobin 11.4 g/dL (12.0-15.0); Lymphocyte # 2.38 X10^3/ul (0.83-4.51); Lymphocyte % 20.6 % (19-41); Mean Corp Hgb Conc 34.1 g/dL (32-36); Mean Corpuscular Hgb 30.6 pg (27.0-32.0); Mean Corpuscular Volume 89.5 fL (81-99); Mean Platelet Vol. 10.7 fl (6.2-12.0); Monocyte% 6.9 % (0-10); NRBC Flagged by Analyzer 0 % (0-5); Neutrophil # 8.26 X10^3/uL (2.7-7.7); Neutrophil % 71.5 % (47-70); Platelet Count 230 K/mm3 (150-450); RBC Distribution Width CV 12.3 % (11.6-14.6); RBC Distribution Width SD 39.9 fl (35.1-43.9); Red Blood Count 3.73 M/mm3 (4.2-5.4); White Blood Count 11.6 K/mm3 (4.4-11.0)
[2022-01-24 14:06] LABS: Anion Gap 4 (5-15); BUN 21 mg/dL (7-18); BUN/Creat Ratio 22.2 RATIO (10-20); Calcium,Total 9.4 mg/dL (8.5-10.1); Chloride 101 mmol/L (98-107); Creatinine, Serum 0.95 mg/dL (0.55-1.02); EST Glomerular Filtration Rate 63 mL/min (>60); Est Glom Filt Rate - Afr Amer 76 mL/min (>60); Estimated Creatinine Clearance 57.41 ml/min; Glucose 119 mg/dL (74-106); Potassium 3.9 mmol/L (3.5-5.1); Sodium Level 135 mmol/L (136-145); Troponin-I HS 7 pg/mL (3.0-54.0)
[2022-01-24 14:35] VITALS: O2SAT 99
[2022-01-24] MEDS: Aspirin 81 MG TAB.CHEW 324 MG PO (14:41)
[2022-01-24 14:43] VITALS: BP 150/89; PULSE 55; RESP 12; TEMP 36.8; O2SAT 100
--- NOTE | 2022-01-24 15:03 | CT_ITS ---
STUDY: CTA CHEST REASON FOR EXAM: Female, 66 years old. Atypical chest pain RADIATION DOSAGE (If Supplied By Facility): CTDIvol = ( 15.50 ) mGy, DLP = ( 494.02 ) mGycm TECHNIQUE: The examination was performed with the intravenous administration of IV 100mL Isovue-370. Post-processing of the angiographic images was performed, with multiplanar reformation and 3D reconstruction. Individualized dose optimization techniques were used for this CT. COMPARISON: None. FINDINGS: Normal enhancement of the main pulmonary artery and right and left pulmonary arteries. Normal enhancement of the bilateral peripheral pulmonary arteries. There is no demonstrated pulmonary embolism. Normal thoracic aorta and visualized great vessels. There is no demonstrated aortic dissection. Normal heart and pericardium. Normal mediastinum. Normal hilar regions. There is peribronchial thickening. The lungs are well expanded. Normal pulmonary parenchyma. Normal pleura. Normal chest wall structures. There are degenerative changes of thoracic spine. Normal visualized upper abdomen. CT/CTA Chest W/WO Contrast IMPRESSION: No demonstrated PE, or thoracic aortic aneurysm or dissection Chronic bronchitis, no organized infiltrate or effusion No suspicious adenopathy Mild degenerative bony changes Electronically Signed: Jorge Luis Mcmillan MD at 16:36 EST ,
[2022-01-24] MEDS: Morphine 4 MG/ML Syringe IV (15:14)
[2022-01-24] MEDS: Ondansetron 4 MG/2 ML Vial IV (15:14)
--- NOTE | 2022-01-24 15:50 | EDS_ITS ---
HPI History of Present Illness Chief Complaint: Chest Pain Narrative Narrative: 66-year-old female presenting for evaluation of chest pressure. She states she felt it the day before yesterday and had gone away and now came back today and feels heavy and sometimes is hard for her to take a deep breath. She states at times it is burning and other times it sharp. She does not feel short of breath. She is recently had a hysterectomy and states that her chest is more uncomfortable than her abdomen. Patient does not have a cough. No fever or chills. No history of DVT/. PFSH PFSH Medical History Ambulates with cane Arthritis Complex endometrial hyperplasia without atypia Ectopic Gastric reflux High cholesterol Hyperlipemia Hypertension Simple endometrial hyperplasia with atypia Simple endometrial hyperplasia without atypia Home Medications atenolol 25 mg tablet 25 mg PO DAILY 08/15/21 [History Last Taken 01/22/22] hydrochlorothiazide 12.5 mg capsule 25 mg PO DAILY 08/15/21 [History Last Taken 11/19/21] omega-3 fatty acids 550 mg PO BID 11/13/21 [History Last Taken 11/19/21] omeprazole 20 mg PO PRN PRN 11/13/21 [History Last Taken 01/22/22] rosuvastatin 20 mg PO DAILY 01/18/22 [History Last Taken Unknown] naproxen 500 mg PO BID PRN PRN #30 tab 01/22/22 [Rx Last Taken Unknown] oxycodone-acetaminophen [Percocet] 1 tab PO Q6H PRN 7 Days #20 tab 01/22/22 [Rx Last Taken Unknown] Allergy/AdvReac Type Severity Reaction Status Date / Time No Known Allergies Allergy Verified 01/22/22 10:09 Family History Mother Hypertension Hyperlipemia Heart disease Father Cancer, Onset Age: 50 Brain cancer Brother Cancer, Onset Age: 50 Brain cancer Surgical History H/O dilation and curettage History of bilateral salpingectomy History of cholecystectomy History of hysteroscopy History of right oophorectomy Social History household members: spouse number of children: 3 current occupational status: employed current occupation: [employer] Smoking Status: Never smoker second hand exposure: No alcohol intake: current alcohol intake frequency: holidays/special occasions only substance use type: does not use seatbelt use: always do you feel safe at home: Yes additional social history: - Silvestre MCKENZIE ROS ED Constitutional Constitutional ED: Denies chills or fever(s) Eyes Eyes: Denies blurry vision or change in vision ENT ENT ED: Denies rhinorrhea or sore throat Cardiovascular Cardiovascular: Reports as per HPI Respiratory/Chest Respiratory/Chest: Denies cough or dyspnea Gastrointestinal Gastrointestinal: Reports abdominal pain; Denies diarrhea, nausea or vomiting Genitourinary Genitourinary ED: Denies dysuria or hematuria Musculoskeletal Musculoskeletal: Denies arthralgias or myalgias Integumentary Denies rash Neurologic Neurologic: Denies headache(s) or weakness Psychiatric Psychiatric: Denies anxiety or depression EXAM Physical Exam Const Vital Signs: 01/24/22 12:47 01/24/22 14:35 01/24/22 14:36 Temperature 98.1 F Temperature Source Temporal Pulse Rate 52 L Respiratory Rate 16 Respiratory Effort Normal Non-Labored Blood Pressure 142/95 H Blood Pressure Mean 110 Pulse Ox 97 99 Oxygen Delivery Method Room Air Room Air 01/24/22 14:43 01/24/22 16:18 Temperature 98.3 F Temperature Source Oral Pulse Rate 55 L 56 L Respiratory Rate 12 14 Respiratory Effort Blood Pressure 150/89 H 153/89 H Blood Pressure Mean 109 110 Pulse Ox 100 97 Oxygen Delivery Method Room Air Room Air Positive well developed General Appearance ED: well developed and NAD; Negative for pallor HEENT Reports moist mucous membranes normocephalic Eyes PERRL General Eye ED: Negative for pale conjunctiva or scleral icterus Chest Wall inspection of chest normal Resp normal respiratory effort and clear to auscultation bilaterally Effort and Inspection: respiratory distress Cardio regular rhythm Rate: bradycardia Extremity normal to inspection General Extremety ED: Negative for edema or tenderness General Extremity: Negative for edema Neuro oriented x3 Sensorium / Orientation: awake and alert Psych mental status grossly normal Skin General Skin Exam: Negative for jaundice or pallor Heart Score History: Slightly/Non-Suspicious ECG: Normal Age: >/= 65 years Risk Factors: >/= 3 Risk Factors or History of CAD Troponin: </= Normal Limit Score: 4 MDM MDM MDM Narrative Medical decision making narrative: Patient presenting with chest pain which was like heaviness at times and other times it feels like burning and sharp. EKG on my interpretation shows a sinus bradycardia with a ventricular rate of 50 bpm without sign of ischemic change. There is no significant interval change from previous EKG performed 15 January 2022. Chest x-ray on my interpretation shows no acute cardiopulmonary process and radiologist agree. CBC shows a slight leukocytosis of 11.6. Hemoglobin is slightly low at 11.4 but she just recently had surgery. Platelets are normal. Renal function and electrolytes are within normal limits. High-sensitivity troponin is 7 and her delta troponin is also 7. I obtained a CTA of the chest which was negative for PE. Radiologist read this as chronic bronchitis. Again patient has normal vital signs and her lungs are clear to auscultation. I believe she safe for discharge home given that she has 2 - troponins and a negative CTA. Patient will follow up with her primary care provider to ensure resolution. Impression: 1. Chest pain Lab Data Attestation: I reviewed the patient's lab results. Labs: Laboratory Results - last 24 hr 01/24/22 01/24/22 01/24/22 13:38 13:38 15:37 WBC 11.6 H RBC 3.73 L Hgb 11.4 L Hct 33.4 L MCV 89.5 MCH 30.6 MCHC 34.1 RDW Std Deviation 39.9 RDW Coeff of Deep 12.3 Plt Count 230 MPV 10.7 Immature Gran % (Auto) 0.900 Neut % (Auto) 71.5 H Lymph % (Auto) 20.6 [place] % (Auto) 6.9 Eos % (Auto) 0.1 Baso % (Auto) 0.0 Absolute Neuts (auto) 8.3 H Absolute Lymphs (auto) 2.38 Nucleated RBC % 0 Sodium 135 L Potassium 3.9 Chloride 101 Carbon Dioxide 30.0 Anion Gap 4 L BUN 21 H Creatinine 0.95 Estim Creat Clear Calc 57.41 Est GFR (MDRD) Af Amer 76 Est GFR (MDRD) Non-Af 63 BUN/Creatinine Ratio 22.2 H Glucose 119 H Calcium 9.4 Troponin I High Sens 7 7 Radiography Diagnostic Testing: Clinical Impression(s) from Imaging Studies Chest X-Ray 01/24/22 12:55 IMPRESSION: Normal x-ray examination of the chest. Electronically Signed: Zeferino Hawthorne MD at 13:16 EST , Chest CTA 01/24/22 15:03 IMPRESSION: No demonstrated PE, or thoracic aortic aneurysm or dissection Chronic bronchitis, no organized infiltrate or effusion No suspicious adenopathy Mild degenerative bony changes Electronically Signed: Jorge Luis Mcmillan MD at 16:36 EST , Discharge Plan Triage Chief Complaint: Chest Pain ED Provider: Jason Apple Dx/Rx/DC Orders Instructions: ED Chest Pain, Noncardiac Prescriptions: No Action atenolol 25 mg tablet 25 mg PO DAILY RF: 0 hydrochlorothiazide 12.5 mg capsule 25 mg PO DAILY RF: 0 omeprazole 20 mg capsule,delayed release(DR/EC) 20 mg PO PRN PRN (Reason: GERD) RF: 0 omega-3 fatty acids Capsule 550 mg PO BID RF: 0 rosuvastatin 20 mg tablet 20 mg PO DAILY RF: 0 oxycodone-acetaminophen [Percocet] 5-325 mg tablet 1 tab PO Q6H PRN (Reason: pain) 7 Days Qty: 20 RF: 0 naproxen [naproxen] 500 MG tablet 500 mg PO BID PRN PRN (Reason: Pain) Qty: 30 RF: 1 Primary Care Provider: Rubia Gupta Referrals: Rubia Gupta PA [Primary Care Provider] - Disposition Disposition: Home, Self Care
[2022-01-24 16:18] VITALS: BP 153/89; PULSE 56; RESP 14; O2SAT 97
[2022-01-24 16:21] LABS: Troponin-I HS 7 pg/mL (3.0-54.0)
== END 2022-01-24 16:56 | disposition home or self-care (01) ==
PROVIDERS: Emergency Provider Student in an Organized Health Care Education/Training Program; PCP Physician Assistant; Visit Provider Student in an Organized Health Care Education/Training Program
DX: R07.9 Chest pain, unspecified (principal); I10 Essential (primary) hypertension; E78.5 Hyperlipidemia, unspecified; K21.9 Gastro-esophageal reflux disease without esophagitis; Z79.899 Other long term (current) drug therapy
CPT/HCPCS: 36415; 71045; 71275; 80048; 84484; 85025; 93005; 96374; 96375; 99284; Q9967; A4216; J2405

== ENCOUNTER → 2022-07-25 | Outpatient (CLI) | payer MEDICARE, SELFPAY ==
--- NOTE | 2022-07-25 12:25 | BD_ITS ---
STUDY: DUAL ENERGY X-RAY ABSORPTIOMETRY / DXA REASON FOR EXAM: Female, 66 years old. Z780. Patient is postmenopausal. TECHNIQUE: Bone Mineral Density (BMD) measurements of lumbar spine and bilateral hips were obtained. COMPARISON: None. FINDINGS: Lumbar Spine (L1-L4): g/cm2 (1.117) / T-score (0.8) / Z-score (2.6) Findings are suggestive of normal bone density with a low fracture risk. Left Femur Total: g/cm2 (1.004) / T-score (0.5) / Z-score (1.8) Left Femoral Neck: g/cm2 (0.75 to) / T-score (-0.9) / Z-score (0.7) Right Femur Total: g/cm2 (0.988) / T-score (0.4) / Z-score (1.6) Right Femoral Neck: g/cm2 (0.829) / T-score (-0.2) / Z-score (1.4) BD/Dexa Bone Density Study IMPRESSION: The patient is considered normal as outlined below according to World [place] Organization (WHO) criteria with a low fracture risk. Reference Information: The T-score is the number of standard deviations above or below the standard which is normal for young adults at their peak bone mineral density. The World Health Organization (WHO) interprets the T-scores as follows: Above -1 Normal bone density Between -1 and -2.5 Osteopenia Equal to / or below -2.5 Osteoporosis As a practical clinical guideline, osteopenia may be graded as follows: Mild -1 through -1.5 Moderate -1.6 through -2.0 Severe -2.1 through -2.4 The Z-score is the number of standard deviations above or below age-matched controls. A Z-score of less than -1.5 would be considered abnormal. References: 1. NIH Osteoporosis and Related Bone Diseases www osteo.org 2. International Society for Clinical Densitometry www iscd.org 3. National Osteoporosis Foundation www nof.org Electronically Signed: Zeferino Hawthorne MD at 14:37 EDT ,
== END | disposition home or self-care (01) ==
LOC: OPBD 12:19
PROVIDERS: PCP Physician Assistant; Visit Provider Physician Assistant
DX: Z78.0 Asymptomatic menopausal state (principal)
CPT/HCPCS: 77080

== ENCOUNTER → 2023-05-16 | Outpatient (CLI) | payer MEDICARE, SELFPAY ==
--- NOTE | 2023-05-16 07:41 | BI_ITS ---
MAMMOGRAPHY - BILATERAL SCREENING REASON FOR EXAM: Female, 67 years old. Routine annual screening examination. PERTINENT HISTORY: Non-contributory. TECHNIQUE: Digital bilateral breast louis (3D mammographic acquisition) in the CC and MLO projections. 2-D mediolateral oblique (MLO) and craniocaudad (CC) views of both breasts were obtained. CAD: Full Field Digital Mammography with Computer Added Detection was performed. COMPARISON: Mammogram from 01/16/2022. FINDINGS: Breast Composition: There are scattered areas of fibroglandular density. There are no dominant masses or suspicious calcifications. Stable small benign-appearing bilateral axillary lymph nodes. No other significant abnormalities are identified. There has been no significant change since the prior study. BI/SCRN MAMM (CAD)W/LOUIS BILAT IMPRESSION: Stable bilateral screening mammogram. Yearly follow-up mammogram recommended. (A) ASSESSMENT CATEGORY: BIRADS Category 2: Benign. A letter regarding these results will be sent to the patient by the facility within 30 days. Approximately 10% of breast cancers are not detected by mammography. A normal mammogram should not delay biopsy of a clinically suspicious abnormality. Electronically Signed: Mark Avendano DO at 15:01 EDT ,
== END | disposition home or self-care (01) ==
LOC: OPBI 07:40
PROVIDERS: PCP Physician Assistant; Referring Provider Obstetrics & Gynecology; Visit Provider Obstetrics & Gynecology
DX: Z12.31 Encounter for screening mammogram for malignant neoplasm of breast (principal)
CPT/HCPCS: 77063; 77067

== ENCOUNTER 2024-02-13 07:35 | Day surgery (SDC) | payer MEDICARE, SELFPAY ==
[2024-02-13 07:52] VITALS: BP 127/67; PULSE 72; RESP 16; TEMP 37.1; O2SAT 100; BMI 36.7
[2024-02-13] MEDS: Lactated Ringers 1,000 ML 15 ML IV (08:00)
--- NOTE | 2024-02-13 08:07 | HP.PCM_ITS ---
HPI - General HPI Narrative TONIA SIDHU, is a 68 F who presents for screening colonoscopy. Her last colonoscopy was in 2010. She reports no blood in the stool or abdominal pain. She has no family history of colon cancer. [facility] Medical History Ambulates with cane Arthritis Complex endometrial hyperplasia without atypia Ectopic Gastric reflux High cholesterol Hyperlipemia Hypertension Non-smoker Rheumatoid arthritis Simple endometrial hyperplasia with atypia Simple endometrial hyperplasia without atypia Wears glasses Home Medications atenolol 25 mg tablet 25 mg PO DAILY 08/15/21 [History Last Taken 02/13/24 04:00] hydrochlorothiazide 12.5 mg capsule 25 mg PO DAILY 08/15/21 [History Last Taken 11/19/21] omega-3 fatty acids 550 mg PO DAILY 11/13/21 [History Last Taken 11/19/21] omeprazole 20 mg capsule,delayed release 20 mg PO DAILY GERD 11/13/21 [History Last Taken 01/22/22] rosuvastatin 20 mg tablet 20 mg PO DAILY 01/18/22 [History Last Taken Unknown] fluticasone propionate 50 mcg/actuation nasal spray,suspension (Flonase Allergy Relief) 1 spray intranasal BID PRN allergy symptoms 01/27/24 [History Last Taken Unknown] prednisone 5 mg tablet 5 mg PO DAILY PRN ARTHRITIS 01/27/24 [History Last Taken Unknown] Allergy/AdvReac Type Severity Reaction Status Date / Time No Known Allergies Allergy Verified 02/13/24 07:51 Family History Mother Hypertension Hyperlipemia Heart disease Father Cancer, Onset Age: 50 Brain cancer Brother Cancer, Onset Age: 50 Brain cancer Surgical History H/O dilation and curettage History of bilateral salpingectomy History of cholecystectomy History of hysteroscopy History of right oophorectomy Hx of colonoscopy S/P vaginal hysterectomy Social History household members: spouse number of children: 3 current occupational status: employed current occupation: [employer] Smoking Status: Never smoker second hand exposure: No alcohol intake: current alcohol intake frequency: holidays/special occasions only substance use type: does not use seatbelt use: always do you feel safe at home: Yes additional social history: - Silvestre Past Medical/Surgical History Planned Operation Planned Operative Procedure/s: COLONOSCOPY Previous Hospitalizations/Surgeries HX Hospitalizations: No Any Problems With Anesthesia: No You/Your Family Experience Fever (Hyperthermia) With Anes: No Cholinesterase deficiency: No Cardiovascular Hx Hypertension: Yes Respiratory Hx Sleep Apnea: No Hx Respiratory Tract Infection/Cold (presently): No Do You Snore Loudly (louder than talking or can be heard): No Do You Often Feel Tired/ Fatigued/ Sleepy Dring Daytime?: No Has Anyone Observed You Stop Breathing During Sleep?: No Result (for STOP score): Negative Smoking Status: Never smoker Neurological Does patient have nerve stimulator: No Reproduction : No Miscellaneous Recent Exposure to Contagious Disease: No Allergies No Known Allergies Allergy (Verified 02/13/24 07:51) Discharge Is Pt Admitted From a [facility], or a Senior Care: No Who Could Help: After D/C, Where Do you Plan to Go: Return Home Vital Signs Vital Signs Vital Signs: 02/13/24 07:52 02/13/24 07:52 Temperature 98.7 F Temperature Source Temporal Pulse Rate 72 Respiratory Rate 16 Respiratory Pattern Normal Blood Pressure 127/67 H Blood Pressure Mean 87 Blood Pressure Source Monitor Blood Pressure Position Semi-Fowlers Blood Pressure Location Right Arm Pulse Ox 100 Oxygen Delivery Method Room Air Weight Weight: 224 lb Body Mass Index (BMI) 36.7 Physical Exam Const alert and oriented x3 HEENT normocephalic Eyes PERRL Resp normal respiratory effort and normal air movement Cardio regular rate and regular rhythm GI soft to palpation, non-tender and non-distended Extremity normal to inspection Assessment & Plan Assessment/Plan (1) Encounter for screening for malignant neoplasm of colon: PLAN: I explained endoscopy in detail to the patient. I explained the risks including but not limited to stroke or heart attack with anesthesia, perforation of the GI tract, bleeding, infection. I explained that any of these could necessitate further emergency surgery. The patient understands and all questions were answered sufficiently. The patient wishes to proceed with procedure. Gabe Landrum MD Pager: [facility] [address] [place] [address], [address] [place] [address] Office: Surgery Risks - Colonoscopy Risks Include but are not Limited To: Risks include but are not limited to: Bleeding, perforation requiring further surgery, inability to complete colonoscopy requiring barium enema.
--- NOTE | 2024-02-13 08:38 | OP.COLON_ITS ---
Patient Name: Estefany Bro Procedure Date: 02/13/2024 8:10 AM Date of : 1955 Age: 68 Procedure: Colonoscopy Indications: Screening for colorectal malignant neoplasm Providers: Gabe Landrum MD Referring MD: Rubia Gupta Medicines: Propofol per Anesthesia Patient Profile: This is a 68 year old female. Refer to note in patient chart for documentation of history and physical. Last Colonoscopy: more than 10 years ago. Complications: No immediate complications. Procedure: Pre-Anesthesia Assessment: - Prior to the procedure, a History and Physical was performed, and patient medications and allergies were reviewed. The patient's tolerance of previous anesthesia was also reviewed. The risks and benefits of the procedure and the sedation options and risks were discussed with the patient. All questions were answered, and informed consent was obtained. Prior Anticoagulants: The patient has taken no anticoagulant or antiplatelet agents. After reviewing the risks and benefits, the patient was deemed in satisfactory condition to undergo the procedure. After I obtained informed consent, the scope was passed under direct vision. Throughout the procedure, the patient's blood pressure, pulse, and oxygen saturations were monitored continuously. The colonoscope was introduced through the anus and advanced to the cecum, identified by appendiceal orifice and ileocecal valve. The colonoscopy was performed without difficulty. The patient tolerated the procedure well. The quality of the bowel preparation was good. The ileocecal valve, appendiceal orifice, and rectum were photographed. Scope In: 8:16:50 AM Scope Withdrawal Time 0 hours 6 minutes 3 seconds Scope Out: 8:32:38 AM Total Procedure Duration Time 0 hours 15 minutes 48 seconds Findings: The entire examined colon appeared normal on direct and retroflexion views. Impression: - The entire examined colon is normal on direct and retroflexion views. - No specimens collected. Recommendation: - Discharge patient to home. - Resume previous diet. - Continue present medications. - Repeat colonoscopy is not recommended due to current age (66 years or older) for screening purposes. Procedure Code(s): --- Professional --- 37704, Colonoscopy, flexible; diagnostic, including collection of specimen(s) by brushing or washing, when performed (separate procedure) Diagnosis Code(s): --- Professional --- Z12.11, Encounter for screening for malignant neoplasm of colon CPT copyright 2021 [employer]. All rights reserved. The codes documented in this report are preliminary and upon civil engineering project manager review may be revised to meet current compliance requirements. Gabe Landrum MD 02/13/2024 8:37:58 AM This report has been signed electronically. Number of Addenda: 0 Note Initiated On: 02/13/2024 8:10 AM
--- NOTE | 2024-02-13 08:38 | OP.CCLET_ITS ---
02/13/2024 Rubia Gupta Re : Colonoscopy procedure for Estefany Bro Dear Alonso This procedure was performed on Tuesday, February 13, 2024. My impressions and recommendations are as follows: Impressions : - The entire examined colon is normal on direct and retroflexion views. - No specimens collected. Recommendations : - Discharge patient to home. - Resume previous diet. - Continue present medications. - Repeat colonoscopy is not recommended due to current age (66 years or older) for screening purposes. My findings are described in the full procedure note, which is enclosed. If I can be of further assistance, please feel free to contact me at Doctor phone number(s): , Work: . Sincerely, Gabe Landrum MD 02/13/2024 8:37:58 AM This report has been signed electronically.
[2024-02-13 08:40] VITALS: BP 104/63; BP 127/67; PULSE 69; RESP 16; O2SAT 98
[2024-02-13 08:45] VITALS: BP 106/66; BP 127/67; PULSE 69; RESP 16; O2SAT 96
[2024-02-13 08:50] VITALS: BP 116/72; BP 127/67; PULSE 69; RESP 16; TEMP 36.4; O2SAT 96
[2024-02-13 09:06] VITALS: BP 127/67
== END 2024-02-13 09:15 | disposition home or self-care (01) ==
LOC: EN 07:36 → AC 07:37
PROVIDERS: PCP Physician Assistant; Referring Provider Physician Assistant; Visit Provider Surgery
PROC: 0DJD8ZZ Inspection of Lower Intestinal Tract, Via Natural or Artificial Opening Endoscopic (ICD-10-PCS; CPT 45378; principal; 2024-02-13 08:25)
DX: Z12.11 Encounter for screening for malignant neoplasm of colon (principal); I10 Essential (primary) hypertension; E78.00 Pure hypercholesterolemia, unspecified; Z79.899 Other long term (current) drug therapy
CPT/HCPCS: G0121; J7120; J2405

== ENCOUNTER → 2024-09-30 | Outpatient (CLI) | payer MEDICARE, SELFPAY | END | disposition home or self-care (01) | LOC: CVS 12:26 | PROVIDERS: PCP Physician Assistant; Referring Provider Physician Assistant; Visit Provider Physician Assistant | DX: R09.89 Other specified symptoms and signs involving the circulatory and respiratory systems (principal) | CPT/HCPCS: 93880 ==

== ENCOUNTER → 2025-03-10 | Outpatient (CLI) | payer MEDICARE, SELFPAY ==
--- NOTE | 2025-03-10 08:57 | BI_ITS ---
EXAM: SCRN MAMM (CAD)W/LOUIS BILAT DATE: 03/10/2025 CLINICAL HISTORY: F, Age 69 y/o , SCREENING No family history. History of prior left breast aspiration. BREAST CANCER RISK ASSESSMENT: Not assessed. TECHNIQUE: Bilateral screening digital breast tomosynthesis with 2D and 3D images. Computer aided detection. COMPARISON: Prior exam(s) dated May 16, 2023.. FINDINGS: TISSUE DENSITY: The breast tissue is composed of scattered area of fibroglandular density.o Bilateral Breast Mammographic Findings: No significant masses, calcifications or other abnormalities are identified. No suspicious masses, areas of developing architectural distortion, or suspicious calcifications. There has been no significant interval change. BI/SCRN MAMM (CAD)W/LOUIS BILAT IMPRESSION: Right Breast: BIRADS 1 NEGATIVE. Left Breast: BIRADS 1 NEGATIVE. OVERALL FINAL ASSESSMENT: BIRADS 1 NEGATIVE RECOMMENDATION: Routine annual follow-up in 1 Year A letter with findings and recommendations will be mailed to the patient. Reading Location: [place] [id number]
== END | disposition home or self-care (01) ==
LOC: OPBI 08:55
PROVIDERS: PCP Physician Assistant; Referring Provider Physician Assistant; Visit Provider Physician Assistant
DX: Z12.31 Encounter for screening mammogram for malignant neoplasm of breast (principal)
CPT/HCPCS: 77063; 77067